=== PATIENT | male | born 1980 | race Two or more races ===

== ENCOUNTER 2018-06-08 16:01 | Inpatient (IN) | payer OTHER ==
[~2018-06-08] VITALS: Ht 165.1 cm; Wt 72.0 kg
[2018-06-08] MEDS ORDERED: SODIUM CHLORIDE 0.9% 1,000 ML IV ONE ×2 (16:15→16:21)
[2018-06-08] MEDS ORDERED: ACETAMINOPHEN 325 MG TAB PO ONE (16:15)
[2018-06-08 17:27] LABS: Basophils # (auto) 0 uL; Basophils % (auto) 0.2 % (0.0-2.0); Eosinophils # (auto) 0 uL; Eosinophils % (auto) 0.1 % (0.0-7.0); Hematocrit 40.3 % (41.0-53.0); Hemoglobin 13.5 g/dL (13.5-17.5); Lymphocytes % (auto) 11.4 % (10.0-50.0); Mean Corpuscular Hemoglobin 30.8 pg (28.0-32.0); Mean Corpuscular Hgb Conc. 33.4 g/dL (32.0-36.0); Mean Corpuscular Volume 92.2 fL (80.0-100.0); Monocytes # (auto) 1.3 uL; Monocytes % (auto) 7.7 % (0.0-12.0); Neutrophils # (auto) 13.9 uL; Neutrophils % (auto) 80.6 % (37.0-80.0); Platelet Count (auto) 365 10^3/uL (140-450); Red Blood Cells 4.37 10^6/uL (4.5-5.90); White Blood Cell 17.3 10^3/uL (4.4-10.8)
[2018-06-08 17:39] LABS: Albumin 3.1 g/dL (3.4-5.0); BUN/Creatinine Ratio 6.4; Calcium 8.1 mg/dL (8.5-10.1); Potassium 4.1 mmol/L (3.5-5.1)
[2018-06-08 17:41] LABS: Bilirubin, Total 0.4 mg/dL (0.2-1.0); Total Protein 7.8 g/dL (6.4-8.2)
[2018-06-08 17:44] LABS: INR 0.95 (0.9-1.15); Lactic Acid w/Reflex 2.2 mmol/L (0.4-2.0); Partial Thromboplastin Time 27.7 sec (23.78-33.04); Prothrombin Time 10.2 sec (9.27-12.13)
[2018-06-08] MEDS ORDERED: LIDOCAINE 2% (LOCAL ANESTH.) PF 5ml SDV ONE (18:22)
[2018-06-08 19:34] LABS: Protein, CSF 59.2 mg/dL (15-45)
[2018-06-08 19:46] LABS: CSF White Blood Cells 5 CUMM (0-5)
[2018-06-08 22:03] LABS: Urine Bacteria NONE SEEN /hpf (None Seen); Urine Blood Negative /uL (Negative); Urine Specific Gravity 1.007 (1.001-1.035); Urine WBC 1 /hpf (0 - 3)
[2018-06-08 22:19] LABS: Alcohol, Urine < 3.0 mg/dL (0-5); Amphetamine Screen, Urine NEGATIVE (NEGATIVE); Barbiturate Scree,Urine NEGATIVE (NEGATIVE); Benzodiazephine Screen, Urine POSITIVE (NEGATIVE); Cannabinoid Screen, Urine NEGATIVE (NEGATIVE); Cocaine Screen, Urine NEGATIVE (NEGATIVE); Opiate Scree,Urine NEGATIVE (NEGATIVE); Phencyclidine Screen, Urine NEGATIVE (NEGATIVE)
[2018-06-08] MEDS ORDERED: cefTRIAXone 1GM/10ml IVPUSH 10 ML IV ONE (23:00)
[2018-06-09] MEDS ORDERED: TEMAZEPAM 15 MG CAP PO PRN (00:15)
[2018-06-09] MEDS ORDERED: NITROGLYCERIN 0.4 MG SL TAB SL PRN (00:15)
[2018-06-09] MEDS ORDERED: ONDANSETRON HCL 4 MG/2 ML VIAL IV PRN (00:15)
[2018-06-09] MEDS ORDERED: MORPHINE SULF INJ 2 MG/ML SYRINGE 1ML IV PRN (00:15)
[2018-06-09] MEDS ORDERED: ACETAMINOPHEN 325 MG TAB PO PRN (00:15)
[2018-06-09 01:30] VITALS: BP 137/76
[2018-06-09] MEDS: SODIUM CHLORIDE 0.9% 1,000 ML IV SCH ×2 (01:57→17:44)
[2018-06-09] MEDS: HYDROcodone-ACET 5/325MG TAB PO PRN ×2 (02:00→18:18)
[2018-06-09] MEDS ORDERED: ELVI1TAB4 PO (02:50)
[2018-06-09 05:09] VITALS: BP 124/49
[2018-06-09] MEDS ORDERED: FLUC200T50 PO (05:55)
[2018-06-09] MEDS ORDERED: IBUPROFEN 600 MG TAB PO PRN (08:00)
[2018-06-09 09:00] VITALS: BP 105/61
[2018-06-09] MEDS ORDERED: CEFTRIAXONE SODIUM 2 GM in D5W 5% 50 ML IV SCH (09:00)
[2018-06-09] MEDS ORDERED: diphenhdrAMINE HCL 50 MG/1 ML VL IV PRN (09:00)
[2018-06-09] MEDS: FAMOTIDINE 20 MG TAB PO SCH ×2 (09:57→21:59)
[2018-06-09] MEDS: CEFTRIAXONE SODIUM 2 GM in D5W 5% 50 ML IV SCH ×2 (09:57→22:00)
[2018-06-09] MEDS: FLUCONAZOLE 100 MG TAB PO SCH (09:58)
[2018-06-09] MEDS ORDERED: GENVOYA PO SCH (10:00)
[2018-06-09] MEDS ORDERED: [UNRECOGNIZED DRUG - OTHER] IV SCH (12:15)
[2018-06-09] MEDS ORDERED: ACYCLOVIR IV SCH (12:15)
[2018-06-09 13:00] VITALS: BP 82/44
[2018-06-09] MEDS: ACYCLOVIR SOD 50MG/ML 700 MG in SODIUM CHL 0.9% 250 ML IV SCH ×2 (14:45→21:59)
[2018-06-09] MEDS: GENVOYA PO SCH (14:54)
[2018-06-09 17:00] VITALS: BP 116/55
[2018-06-09 21:43] VITALS: BP 93/57
[2018-06-10] VITALS (7 sets, daily range): BP systolic 92–114; BP diastolic 44–76
[2018-06-10 05:38] LABS: Hematocrit 37.4 % (41.0-53.0); Hemoglobin 12.7 g/dL (13.5-17.5); Mean Corpuscular Hemoglobin 31.5 pg (28.0-32.0); Mean Corpuscular Volume 92.6 fL (80.0-100.0); Platelet Count (auto) 328 10^3/uL (140-450); Red Blood Cells 4.04 10^6/uL (4.5-5.90); Red Cell Distribution Width 13.2 % (11.8-14.3); White Blood Cell 9.2 10^3/uL (4.4-10.8)
[2018-06-10 05:45] LABS: Albumin 2.7 g/dL (3.4-5.0); Calcium 8.7 mg/dL (8.5-10.1); Potassium 4.3 mmol/L (3.5-5.1)
[2018-06-10] MEDS: SODIUM CHLORIDE 0.9% 1,000 ML IV SCH ×2 (05:46→16:27)
[2018-06-10] MEDS: ACYCLOVIR SOD 50MG/ML 700 MG in SODIUM CHL 0.9% 250 ML IV SCH ×3 (05:47→23:45)
[2018-06-10 05:48] LABS: BUN/Creatinine Ratio 11.8
[2018-06-10 05:51] LABS: Bilirubin, Total 0.3 mg/dL (0.2-1.0); Total Protein 7.5 g/dL (6.4-8.2)
[2018-06-10] MEDS: HYDROcodone-ACET 5/325MG TAB PO PRN ×3 (05:56→20:16)
[2018-06-10 06:29] LABS: Basophils % (manual) 0 (0.0-2.0); Blast Cells 0; Metamyelocytes % 0; Myelocytes % 0; Promyelocytes % 0; Reactive Lymphocytes 0
[2018-06-10 07:40] LABS: Band Neutrophils % (manual) 2; Eosinophils % (manual) 1 (0-7); Lymphocytes % (manual) 18 (10.0-50.0); Monocytes % (manual) 9 (0-12)
[2018-06-10 08:10] LABS: Immunoglobulin G, Serum 1494 mg/dL (700-1600)
[2018-06-10] MEDS: CEFTRIAXONE SODIUM 2 GM in D5W 5% 50 ML IV SCH ×2 (10:31→22:23)
[2018-06-10] MEDS: FLUCONAZOLE 100 MG TAB PO SCH (10:32)
[2018-06-10] MEDS: GENVOYA PO SCH (10:32)
[2018-06-10] MEDS: FAMOTIDINE 20 MG TAB PO SCH ×2 (10:33→20:15)
[2018-06-11 05:04] VITALS: BP 141/93
[2018-06-11] MEDS: SODIUM CHLORIDE 0.9% 1,000 ML IV SCH (05:48)
[2018-06-11] MEDS: ACYCLOVIR SOD 50MG/ML 700 MG in SODIUM CHL 0.9% 250 ML IV SCH ×2 (05:48→14:00)
[2018-06-11 05:53] LABS: Basophils # (auto) 0 uL; Basophils % (auto) 0.3 % (0.0-2.0); Eosinophils # (auto) 0.1 uL; Eosinophils % (auto) 2.2 % (0.0-7.0); Hematocrit 38.3 % (41.0-53.0); Lymphocytes # (auto) 1.7 uL; Lymphocytes % (auto) 27.9 % (10.0-50.0); Mean Corpuscular Hemoglobin 30.9 pg (28.0-32.0); Monocytes # (auto) 0.9 uL; Monocytes % (auto) 14.5 % (0.0-12.0); Neutrophils # (auto) 3.4 uL; Neutrophils % (auto) 55.1 % (37.0-80.0); Platelet Count (auto) 324 10^3/uL (140-450); White Blood Cell 6.1 10^3/uL (4.4-10.8)
[2018-06-11 06:13] LABS: BUN/Creatinine Ratio 10.6; Calcium 8.8 mg/dL (8.5-10.1); Potassium 3.2 mmol/L (3.5-5.1)
[2018-06-11 08:00] VITALS: BP 109/60
[2018-06-11] MEDS ORDERED: FLUCONAZOLE 100 MG TAB PO SCH (10:00)
[2018-06-11] MEDS: CEFTRIAXONE SODIUM 2 GM in D5W 5% 50 ML IV SCH (10:15)
[2018-06-11] MEDS: GENVOYA PO SCH (10:16)
[2018-06-11] MEDS: FAMOTIDINE 20 MG TAB PO SCH (10:16)
[2018-06-11] MEDS ORDERED: FLUC100T34 PO (11:37)
[2018-06-11 12:00] VITALS: BP 132/61
[2018-06-11 12:33] VITALS: BP 132/61
[2018-06-13 14:09] LABS: Albumin, CSF 25 mg/dL (11-48); IgG, Quant, CSF 10.3 mg/dL (0.0-8.6); IgG, Syn Rate,CSF 25.1 mg/day (-9.9 TO +3.3)
== END 2018-06-11 14:31 | disposition home or self-care (01) | DRG 720 ==
LOC: ER 16:04 → TELE 16:05 → TELE-EAST 06-09 01:30 → EAST 06-10 15:47
PROVIDERS: ADMIT Nurse Practitioner; ATTEND Internal Medicine
PROC: 009U3ZX Drainage of Spinal Canal, Percutaneous Approach, Diagnostic (ICD-10-PCS; principal; 2018-06-09)
PROC: B01B1ZZ Fluoroscopy of Spinal Cord using Low Osmolar Contrast (ICD-10-PCS; 2018-06-09)
DX: A41.9 Sepsis, unspecified organism (principal); B45.1 Cerebral cryptococcosis; G00.9 Bacterial meningitis, unspecified; G93.89 Other specified disorders of brain; E44.1 Mild protein-calorie malnutrition; F17.200 Nicotine dependence, unspecified, uncomplicated; Z68.26 Body mass index [BMI] 26.0-26.9, adult; Z83.3 Family history of diabetes mellitus; Z86.61 Personal history of infections of the central nervous system; Z82.49 Family history of ischemic heart disease and other diseases of the circulatory system; Z88.2 Allergy status to sulfonamides
CPT/HCPCS: 36415; 62272; 70450; 71046; 80048; 80053; 80307; 81001; 82042; 82784; 82945; 83605; 83735; 84157; 84443; 85007; 85025; 85027; 85610; 85730; 86360; 87040; 87070; 87205; 87529; 89051; 94761; 96361; 96374; J0696; J2001; J7060